=== PATIENT | male | born 1990 | race Caucasian/White ===

== ENCOUNTER 2018-06-26 10:29 | Emergency (ER) | payer SELFPAY ==
[2018-06-26] MEDS ORDERED: Ketorolac Tromethamine 30 MG/ML VIAL ONE (10:49)
[2018-06-26 11:47] LABS: Clarity Cloudy (Clear)
[2018-06-26 11:48] LABS: Bilirubin Small (Negative); Blood, Urine Large (Negative); Glucose, Urine (Dipstick) Negative (Negative); Leukocyte Negative (Negative); Nitrite Negative (Negative); Protein, Urine (Dipstick) 30 mg/dL (Neg-Trace)
[2018-06-26 11:54] LABS: Bacteria/HPF Rare-Few HPF (None Seen); Crystals/HPF None Seen HPF (Negative); Hyaline Casts/LPF NONE SEEN LPF (0-3 Hyaline); Other Casts/LPF None Seen LPF (0-3 Hyaline); Oval Fat Bodies/HPF None Seen HPF (None Seen); RBC/HPF GREATER THAN 50-TNTC HPF (0-3); Renal Epithelial None Seen HPF (0-3); Sperm/HPF None Seen HPF (None Seen); Squamous Epithelial None Seen HPF (0-3); Transitional Epithelial NONE SEEN HPF (0-3); Trichomonas/HPF None Seen HPF (None Seen); WBC/HPF 0-3 HPF (0-3); Yeast-All Forms None Seen HPF (None Seen)
--- NOTE | 2018-06-26 12:40 | CT ---
CT OF ABDOMEN AND PELVIS PERFORMED WITHOUT CONTRAST ENHANCEMENT: HISTORY: Left flank pain. FINDINGS: The lung bases are clear. The liver, spleen, pancreas, and gallbladder regions appear unremarkable given the limitations of a n oncontrast study. Right and left adrenal glands are normal. Right and left kidney are normal in size. A punctate lowe r pole left renal calculus is seen and minimal left-sided hydronephrosis and hydroureter is present r elated to a distal left ureteral calculus measuring in the 3-4 mm range which is located approximatel y 3 cm proximal to the left ureterovesical junction. There is no significant periaortic or mesenteri c adenopathy. CT OF PELVIS PERFORMED WITHOUT CONTRAST ENHANCEMENT: The appendix is normal. No adenopathy or mass. IMPRESSION: 1. Minimal left-sided hydronephrosis and hydroureter related to a 3 mm distal left ureteral calculus located at approximately 3 cm proximal to the left ureterovesical junction. 2. Punctate lower pole left renal calculus. POS: [id number]
== END 2018-06-26 11:58 | disposition home or self-care (01) ==
LOC: BURERS 10:29
DX: N13.2 Hydronephrosis with renal and ureteral calculous obstruction (principal); F17.210 Nicotine dependence, cigarettes, uncomplicated
CPT/HCPCS: 74176; 81003; 81015; 96374; J1885